=== PATIENT | female | born 2000 | race African-American/Black ===

== ENCOUNTER 2024-11-22 22:58 | Emergency (ER) | payer OTHER ==
[2024-11-22 23:13] VITALS: BMI 18.3
[2024-11-23 00:03] LABS: ABSOLUTE IMMATURE GRANULOCYTES 0.01 x10^3/uL (0.0-0.031); BASOPHILS # 0.01 x10^3/uL (0.01-0.08); EOSINOPHIL % 1.2 % (0.7-5.8); EOSINOPHILS # 0.05 x10^3/uL (0.04-0.36); MCHC 27.6 g/dl (32.2-35.5); MEAN CELL VOLUME 68.8 fl (79.4-94.8); MEAN PLT VOLUME 9.2 fl (9.4-12.3); MONOCYTE # 0.58 x10^3/uL (0.24-0.86); MONOCYTE % 14.0 % (4.7-12.5); RDW 18.4 % (12.1-16.5)
[2024-11-23 00:37] LABS: GLUCOSE,RANDOM 84.0 mg/dL (74-106)
[2024-11-23 00:38] LABS: TOT PROT 7.3 g/dl (6.4-8.2)
[2024-11-23 00:39] LABS: CO2 25.0 mmol/L (21-32)
[2024-11-23 00:40] LABS: ALK PHOS 41.0 U/L (40-150)
[2024-11-23 00:43] LABS: CREATININE 0.77 mg/dL (0.55-1.3); SGOT/AST 16.0 U/L (5-34); SGPT/ALT 7.0 U/L (0-55)
[2024-11-23 01:11] LABS: HCV DIAGNOSTIC IN-HOUSE W/RFLX NON-REACTIVE (NONREACTIVE); HIV INTERPRETATION NEGATIVE (NEGATIVE)
[2024-11-23 02:52] VITALS: RESP 17
[2024-11-23 05:23] VITALS: BP 114/68; PULSE 77; TEMP 98.4
== END 2024-11-23 05:57 | disposition home or self-care (01) ==
LOC: JER 22:58
DX: D64.9 Anemia, unspecified (principal); R53.1 Weakness; R53.83 Other fatigue
CPT/HCPCS: 36415; 36430; 80053; 84703; 85025; 86803; 86850; 86900; 86901; 86922; 87389; 99283-25; P9058